=== PATIENT | female | born 1965 | race Caucasian/White ===

== ENCOUNTER 2020-09-08 12:33 | Outpatient (REF) | payer OTHER, SELFPAY ==
[2020-09-08 17:57] LABS: Alanine Aminotransferase 15 U/L (0-31); Albumin Level 4.3 g/dL (3.5-5.0); Alkaline Phosphatase 71 U/L (39-117); Anion Gap 15 (12-20); Aspartate Amino Transferase 20 U/L (5-31); Bilirubin Total 0.5 mg/dL (0.0-1.0); Blood Urea Nitrogen 12 mg/dL (9-16); Calcium 9.2 mg/dL (8.4-10.2); Carbon Dioxide 27 mmol/L (22-29); Chloride 99 mmol/L (96-108); Cholesterol 241 mg/dL; Estimated Glomerular Filt Rate > 60; Glucose Random 73 mg/dL (60-115); HDL Cholesterol 59 mg/dL; LDL Cholesterol Calculated 149 mg/dl; Potassium 3.5 mmol/L (3.3-5.1); Sodium 137 mmol/L (135-145); Total Protein 7.5 g/dL (6.5-8.0); Triglycerides 167 mg/dL
[2020-09-08 18:17] LABS: Free T4 (Free Thyroxine) 0.77 ng/dL (0.71-1.85); Thyroid Stimulating Hormone 1.15 uIU/mL (0.32-4.0)
== END 2020-09-08 12:34 | disposition home or self-care (01) ==
LOC: HO.MANLDS 12:33
PROVIDERS: PCP Internal Medicine; Visit Provider Internal Medicine
DX: Z00.00 Encounter for general adult medical examination without abnormal findings (principal); E03.9 Hypothyroidism, unspecified
CPT/HCPCS: 36415; 80053; 80061; 84439; 84443

== ENCOUNTER 2023-08-09 10:02 | Outpatient (REF) | payer OTHER, SELFPAY ==
[2023-08-09 13:40] LABS: MANUAL DIFF FLAG NO
[2023-08-09 13:42] LABS: Basophils Percent Auto 0.5 % (0-2); Eosinophils Absolute Auto 0.1 X10*3/uL (0.0-0.4); Eosinophils Percent Auto 1.4 % (0-4); Hematocrit 41.2 % (37.0-47.0); Hemoglobin 13.5 g/dl (12.0-16.0); Imm Gran Abs Auto 0.02 X10*3/uL (0.00-0.03); Imm Gran Pct Auto 0.3 % (0.0-0.4); Lymphocytes Absolute Auto 1.8 X10*3/uL (1.2-4.9); Lymphocytes Percent Auto 28.2 % (20-40); Mean Corpuscular HGB Conc 32.8 g/dl (31.0-35.0); Mean Corpuscular Hemoglobin 28.2 pg (27.0-33.0); Mean Corpuscular Volume 86.2 fL (80.0-98.0); Mean Platelet Volume 11.1 fL (9.4-12.3); Monocytes Absolute Auto 0.4 X10*3/uL (0.1-1.2); Monocytes Percent Auto 6.2 % (2-11); Neutrophils Percent Auto 63.4 % (45-73); Platelet Count 191 X10*3/uL (160-400); Red Blood Count 4.78 X10*6/uL (4.20-5.50); Red Cell Distribution Width 13.3 % (11.0-16.0); White Blood Count 6.3 X10*3/uL (4.8-10.8)
[2023-08-09 14:13] LABS: Alanine Aminotransferase 18 U/L (0-31); Albumin Level 4.4 g/dL (3.5-5.0); Alkaline Phosphatase 65 U/L (39-117); Anion Gap 15 (12-20); Aspartate Amino Transferase 20 U/L (5-31); Bilirubin Total 0.4 mg/dL (0.0-1.0); Blood Urea Nitrogen 30 mg/dL (9-16); Calcium 9.5 mg/dL (8.4-10.2); Carbon Dioxide 28 mmol/L (22-29); Chloride 100 mmol/L (96-108); Cholesterol 234 mg/dL (<200); Estimated Glomerular Filt Rate 54; Glucose Random 94 mg/dL (60-115); HDL Cholesterol 48 mg/dL (>40); LDL Cholesterol Calculated 153 mg/dL (<100); Sodium 140 mmol/L (135-145); Total Protein 7.7 g/dL (6.5-8.0); Triglycerides 165 mg/dL (<150)
[2023-08-09 14:32] LABS: Free T4 (Free Thyroxine) 0.75 ng/dL (0.71-1.85); Thyroid Stimulating Hormone 2.65 uIU/mL (0.32-4.0)
== END 2023-08-09 10:03 | disposition home or self-care (01) ==
LOC: HO.MANLDS 10:02
PROVIDERS: Visit Provider Internal Medicine
DX: I10 Essential (primary) hypertension (principal); E78.2 Mixed hyperlipidemia; E03.9 Hypothyroidism, unspecified
CPT/HCPCS: 36415; 80053; 80061; 84439; 84443; 85025

== ENCOUNTER 2024-07-24 13:47 | Outpatient (REF) | payer OTHER, SELFPAY ==
--- OUTSIDE RECORDS SUMMARY | 2024-07-24 14:20 | XMS_ITS | Data Portability ---
Author Organization [facility], Home Service Address [address] [place] [address] Assessment Encounter Date Assessment Date Assessment LastModified by Organization Details LastModified Time 11/28/2022 11/28/2022 [id number] [place] [id number] (SENIOR MECHANICAL DESIGNER) [facility] MODERATE MUST MEET 2 OUT OF 3 ELEMENTS: PROBLEMS, DATA OR RISK ELEMENT 1: PROBLEMS ADDRESSED 1 OR MORE CHRONIC ILLNESS WITH EXACERBATION OR 2 OR MORE STABLE CHRONIC ILLNESSES OR 1 UNDIAGNOSED NEW PROBLEM OR 1 ACUTE ILLNESS W/SYMPTOMS OR 1 ACUTE COMPLICATED INJURY ELEMENT 2: DATA MUST MEET 1 OF 3 CATEGORIES CATEGORY 1: REVIEW OF PRIOR EXTERNAL NOTES, REVIEW OF RESULTS, ORDERING OF EACH TEST, ASSESSMENT REQUIRING INDEPENDENT HISTORIAN OR CATEGORY 2: INDEPENDENT INTERPRETATION OF TESTS BY ANOTHER PHYSICIAN OR SPECIALIST OR CATEGORY 3: DISCUSSION OF MGT OR TEST INTERPRETATION W/EXTERNAL PHYSICIAN OR SPECIALIST ELEMENT 3: RISK RISK OF COMPLICATIONS AND/OR MORBIDITY OR MORTALITY OF PATIENT MANAGEMENT PROVIDER MUST THOROUGHLY DOCUMENT EACH ELEMENT THAT IS COVERED Not available 11/28/2022 10:36:19 01/02/2023 01/02/2023 [id number] [place] [id number] (SENIOR MECHANICAL DESIGNER) [facility] MODERATE MUST MEET 2 OUT OF 3 ELEMENTS: PROBLEMS, DATA OR RISK ELEMENT 1: PROBLEMS ADDRESSED 1 OR MORE CHRONIC ILLNESS WITH EXACERBATION OR 2 OR MORE STABLE CHRONIC ILLNESSES OR 1 UNDIAGNOSED NEW PROBLEM OR 1 ACUTE ILLNESS W/SYMPTOMS OR 1 ACUTE COMPLICATED INJURY ELEMENT 2: DATA MUST MEET 1 OF 3 CATEGORIES CATEGORY 1: REVIEW OF PRIOR EXTERNAL NOTES, REVIEW OF RESULTS, ORDERING OF EACH TEST, ASSESSMENT REQUIRING INDEPENDENT HISTORIAN OR CATEGORY 2: INDEPENDENT INTERPRETATION OF TESTS BY ANOTHER PHYSICIAN OR SPECIALIST OR CATEGORY 3: DISCUSSION OF MGT OR TEST INTERPRETATION W/EXTERNAL PHYSICIAN OR SPECIALIST ELEMENT 3: RISK RISK OF COMPLICATIONS AND/OR MORBIDITY OR MORTALITY OF PATIENT MANAGEMENT PROVIDER MUST THOROUGHLY DOCUMENT EACH ELEMENT THAT IS COVERED Not available 01/02/2023 14:46:11 02/06/2023 02/06/2023 [id number] [place] [id number] (SENIOR MECHANICAL DESIGNER) [facility] MODERATE MUST MEET 2 OUT OF 3 ELEMENTS: PROBLEMS, DATA OR RISK ELEMENT 1: PROBLEMS ADDRESSED 1 OR MORE CHRONIC ILLNESS WITH EXACERBATION OR 2 OR MORE STABLE CHRONIC ILLNESSES OR 1 UNDIAGNOSED NEW PROBLEM OR 1 ACUTE ILLNESS W/SYMPTOMS OR 1 ACUTE COMPLICATED INJURY ELEMENT 2: DATA MUST MEET 1 OF 3 CATEGORIES CATEGORY 1: REVIEW OF PRIOR EXTERNAL NOTES, REVIEW OF RESULTS, ORDERING OF EACH TEST, ASSESSMENT REQUIRING INDEPENDENT HISTORIAN OR CATEGORY 2: INDEPENDENT INTERPRETATION OF TESTS BY ANOTHER PHYSICIAN OR SPECIALIST OR CATEGORY 3: DISCUSSION OF MGT OR TEST INTERPRETATION W/EXTERNAL PHYSICIAN OR SPECIALIST ELEMENT 3: RISK RISK OF COMPLICATIONS AND/OR MORBIDITY OR MORTALITY OF PATIENT MANAGEMENT PROVIDER MUST THOROUGHLY DOCUMENT EACH ELEMENT THAT IS COVERED Not available 02/06/2023 12:31:39 08/09/2023 08/09/2023 [id number] [place] [address] (SENIOR MECHANICAL DESIGNER) [facility] MODERATE MUST MEET 2 OUT OF 3 ELEMENTS: PROBLEMS, DATA OR RISK ELEMENT 1: PROBLEMS ADDRESSED 1 OR MORE CHRONIC ILLNESS WITH EXACERBATION OR 2 OR MORE STABLE CHRONIC ILLNESSES OR 1 UNDIAGNOSED NEW PROBLEM OR 1 ACUTE ILLNESS W/SYMPTOMS OR 1 ACUTE COMPLICATED INJURY ELEMENT 2: DATA MUST MEET 1 OF 3 CATEGORIES CATEGORY 1: REVIEW OF PRIOR EXTERNAL NOTES, REVIEW OF RESULTS, ORDERING OF EACH TEST, ASSESSMENT REQUIRING INDEPENDENT HISTORIAN OR CATEGORY 2: INDEPENDENT INTERPRETATION OF TESTS BY ANOTHER PHYSICIAN OR SPECIALIST OR CATEGORY 3: DISCUSSION OF MGT OR TEST INTERPRETATION W/EXTERNAL PHYSICIAN OR SPECIALIST ELEMENT 3: RISK RISK OF COMPLICATIONS AND/OR MORBIDITY OR MORTALITY OF PATIENT MANAGEMENT PROVIDER MUST THOROUGHLY DOCUMENT EACH ELEMENT THAT IS COVERED Not available 08/09/2023 09:55:11 02/07/2024 02/07/2024 [id number] [place] [id number] (SENIOR MECHANICAL DESIGNER) [facility] MODERATE MUST MEET 2 OUT OF 3 ELEMENTS: PROBLEMS, DATA OR RISK ELEMENT 1: PROBLEMS ADDRESSED 1 OR MORE CHRONIC ILLNESS WITH EXACERBATION OR 2 OR MORE STABLE CHRONIC ILLNESSES OR 1 UNDIAGNOSED NEW PROBLEM OR 1 ACUTE ILLNESS W/SYMPTOMS OR 1 ACUTE COMPLICATED INJURY ELEMENT 2: DATA MUST MEET 1 OF 3 CATEGORIES CATEGORY 1: REVIEW OF PRIOR EXTERNAL NOTES, REVIEW OF RESULTS, ORDERING OF EACH TEST, ASSESSMENT REQUIRING INDEPENDENT HISTORIAN OR CATEGORY 2: INDEPENDENT INTERPRETATION OF TESTS BY ANOTHER PHYSICIAN OR SPECIALIST OR CATEGORY 3: DISCUSSION OF MGT OR TEST INTERPRETATION W/EXTERNAL PHYSICIAN OR SPECIALIST ELEMENT 3: RISK RISK OF COMPLICATIONS AND/OR MORBIDITY OR MORTALITY OF PATIENT MANAGEMENT PROVIDER MUST THOROUGHLY DOCUMENT EACH ELEMENT THAT IS COVERED Not available 02/07/2024 09:12:12 Plan of Treatment Reminders Order Date Submit Date Provider Last Modified By Organization Details Last Modified Time Details Appointments FOLLOW UP 15 2024 10:00A M DR LI Not available Not available Not available Lab CMP, serum or plasma 2023 024 [facility], [address] [place] [address], [id number], 02/07/2024 09:20:28 CBC 2023 024 [facility], [address] [place] [address], [id number], 02/07/2024 09:20:28 TSH, serum or plasma 2023 024 [facility], [address] [place] [address], [id number], 02/07/2024 09:20:28 lipid panel, blood 2023 024 [facility], [place], [address], 08/10/2023 11:15:53 CMP, serum or plasma 2023 024 [facility], [place], [address], 08/10/2023 11:15:53 CBC 2023 024 [facility], [place], [address], 08/10/2023 11:15:53 TSH + free T4, serum 2023 024 [facility], [place], [address], 08/10/2023 11:15:53 Referral None recorded. Procedures None recorded. Surgeries None recorded. Imaging MAMMO, screening , digital, bilateral 2022 023 [facility] Not available 01/16/2023 08:38:37 Medication Orders triamtere ne 37.5 mg-hydroc hlorothia zide 25 mg tablet 2022 023 [id number], [address] [place], [address], 01/02/2023 14:48:57 Patient TargetsNo targets recorded. Patient Instructions Encounter Date Encounter Id Patient Instructions Last Modified By Organization Details Last Modified Time 01/02/2023 [id number] mammogram: about this test Not available 01/02/2023 14:53:13 02/06/2023 [id number] cough: care instructions Not available 02/06/2023 12:32:31 02/07/2024 [id number] pulse oximetry* Not available 02/07/2024 09:13:30 Reason for Referral None Reported. Results Created Date Observation Date Name Description Value Unit Range Abnormal Flag Note LastModifiedBy Organization Detail LastModifiedTime 02/07/20 24 02/07/2024 pulse oxime try* Result 99% Not Available [facility] [address] [facility] [address], [place], [address], 02/07/2024 08:25:50 04/14/19 24 04/11/2023 MAMMO , scree live, digit al, bilat eral No observ ation record ed. [facility] [address] [place], [address], 08/09/2023 09:53:29 Result Notes None recorded. Problems Name Problem SNOMED Code Status Onset Date Resolution Date Notes Provider Name and Address Organization Details Recorded Time Hyperten sive disorder 90091656 Active 2017 MICHEAL Magdaleno [facility] 8 08:24:32 Disorder of vitamin B12 949230555 Active 2017 MICHEAL Magdaleno [facility] 8 08:24:38 Hypertri glycerid emia 188212671 Active 2017 [facility] 8 08:24:43 Hypothyr oidism 53513558 Active 2017 [facility] 08:25:06 History of cervical discecto my 92184400302 483389 Active 2017 cervical fusion C3-6 Fransisco Li, [address], [address], [facility] 3 11:46:13 History of tobacco use 03161709076 03 Active 2017 [facility] 8 08:25:45 Cough 54758618 Active 2021 Fransisco Li, [address], [address], [facility] 2 16:16:30 Strain of muscle of right shoulder 28837629105 414437 Active 2022 Fransisco Li [address], [address], [facility] 3 11:47:47 Pain of ear 355419491 Active 2022 Fransisco Li DO [address] [place] [address], [address], [facility] 3 11:52:48 Acute pain of joint of knee 99546987953 9104 Active 2022 Fransisco Li [address], [address], [facility] 3 14:50:34 Problem Notes None recorded. Procedures Surgical History None recorded. Imaging Results Imaging Date Name Status LastModified by Organiz ation Details LastModified Time 04/11/2023 MAMMO, screening, digital, bilateral completed [facility] [address] [facility], [place], [address], 08/09/2023 09:53:29 Procedure Notes None recorded. Medical Equipment None Reported. Allergies Allergen ID Allergen Name Allergen Category Reaction Reaction Severity Criticality Documentation Date Start Date Code Code System Note Provider Name and Address Organization Details Recorded Time 3374 morphine medicatio n Not available Not available Not available 10/12/2018 7052 RxNorm Does not feel right on this medic ation Cassi [facility] 9 14:32:01 4243 influenza virus vaccine, specific Not available Not available Not available Not available 03/10/2020 42959 UNK Paris Stephenson [facility] 1 12:04:54 Medications Name Sig Start Date Stop Date Status Note LastModified by Organization Details LastModified Time [place] Thyroid 60 mg tablet TAKE 1 TABLET BY MOUTH EVERY MORNING ALONG WITH 15MG TABLET active Not Available Not Available No t Available [place] Thyroid 15 mg tablet TAKE 1 TABLET BY MOUTH EVERY DAY IN THE MORNING active Not Available Not Available No t Available triamterene 37.5 mg-hydrochlor othiazide 25 mg tablet TAKE 2 TABLETS BY MOUTH EVERY DAY 025 active Not Available Not Available Not Avai lable Vitals Date Recorded Body height Body mass index (BMI) Body weight Heart rate Oxygen saturation Oxygen saturation in Arterial blood by Pulse oximetry Systolic blood pressure Diastolic blood pressure Provider Name and Address Organization Details Last Updated DateTime 3 162.56 cm 32.3 kg/m2 79132.3 7 g 72 /min 98 % 98 % 150 mm[Hg] 98 mm[Hg] Liyah Chavez [facility] 3 10:04:16 Date Recorded Body height Body mass index (BMI) Body weight Heart rate Oxygen saturation Oxygen saturation in Arterial blood by Pulse oximetry Systolic blood pressure Diastolic blood pressure Provider Name and Address Organization Details Last Updated DateTime 3 162.56 cm 33.6 kg/m2 33230.1 g 81 /min 98 % 98 % 142 mm[Hg] 82 mm[Hg] Fransisco Li, DO [address] [place], [address] , [facility] 3 14:31:27 Date Recorded Body height Body mass index (BMI) Body weight Heart rate Oxygen saturation Oxygen saturation in Arterial blood by Pulse oximetry Systolic blood pressure Diastolic blood pressure Provider Name and Address Organization Details Last Updated DateTime 3 162.56 cm 33.6 kg/m2 86903.1 g 80 /min 98 % 98 % 140 mm[Hg] 80 mm[Hg] Fransisco Li, DO [address] [place], [address], [facility] 3 11:56:14 Date Recorded Body height Body mass index (BMI) Body weight Heart rate Respiratory rate Oxygen saturation Oxygen saturation in Arterial blood by Pulse oximetry Systolic blood pressure Diastolic blood pressure Provider Name and Address Organization Details Last Updated DateTime 4 162.56 cm 33 kg/m2 43509.5 3 g 78 /min 16 /min 99 % 99 % 118 mm[Hg] 74 mm[Hg] Ravin Atkinson [facility] 4 09:37:25 Date Recorded Body height Body mass index (BMI) Body weight Heart rate Oxygen saturation Oxygen saturation in Arterial blood by Pulse oximetry Systolic blood pressure Diastolic blood pressure Provider Name and Address Organization Details Last Updated DateTime 4 162.56 cm 34.3 kg/m2 60209.0 4 g 82 /min 99 % 99 % 138 mm[Hg] 82 mm[Hg] Ravin Atkinson [facility] 4 09:03:53 Social History Question Answer Notes LastModified by Organizat ion Details LastModified Time Tobacco Smoking Status Former Smoker Not Available [facility] 01/07/2020 03:36:24 What Was The Date Of Your Most Recent Tobacco Screening? 02/07/2024 [email or web address] Information not available 02/07/2024 Sex: Unknown Functional Status Question Answer Note LastModified by Organization D etails LastModified Time Do you or have you ever used any other forms of tobacco or nicotine? No [email or web address] Information not available 11/28/2022 Mental Status None recorded. Family History Nothing Reported. Medical History No medical history recorded. Gynecological HistoryNo gynecological history recorded. Obstetrics History GPAL:G 0 P 0 0 0 0 Immunizations Vaccine Type Date Status Note Provider Nam e and Address Organization Details Recorded Time COVID-19 vaccine, vector-nr, rS-ChAdOx1, PF, 0.5 mL 06/14/2020 completed Paris Stephenson [facility] 09/14/2020 09:59:18 COVID-19 vaccine, vector-nr, rS-Ad26, PF, 0.5 mL 03/30/2021 completed Tracey bucio [facility] 05/30/2022 08:43:06 Past Encounters Encounter ID Performer Location Encounter Start Date Encounter Closed Date Diagnosis/Indication Diagnosis SNOMED-CT Code Diagnosis ICD10 Code Diagnosis Note [id number] Fransisco Li [facility] [address] [facility] [address] 11/24/2017 09:01:24 11/24/2017 13:36:06 Hypertensive disorder 72626196 I10 here it is quite good todday and states it has been good outsidfe as well tolerates meds but overall ok Hypertriglyceridemia 302 115679 E78.2 will check next lab draw lipids Hypothyroidism 06218547 E03.9 rechk tsh and t4 [id number] Fransisco Li [facility] [address] [facility],[place] [address] 05/25/2018 09:21:15 05/25/2018 10:20:37 Hypothyroidism 63794537 E03.9 rechk tsh and t4 Hypertensive disorder 38 589374 I10 good today and states it has been good at home despite her stress losing 20lbs helps tolerates meds but overall ok [id number] Fransisco Li DO [facility] [address] [facility],[place] [address] 10/12/2018 14:24:17 10/12/2018 15:12:02 Complaining of a rash 983133736 R21 mild appearing rash doesn't seem consistent with poison afsaneh, but perhaps a more mild allergic reaction given response to benadryl continue benadryl prn f/u if sx change or worsen Hypertensive disorder 38 580793 I10 mildly elevated today [id number] Fransisco Li [facility] [address] [facility] [address],[place] [address] 11/28/2018 09:32:52 11/28/2018 10:54:53 Hypothyroidism 98678758 E03.9 rechk tsh and t4 done recently and is having dr dey adjust her dose Hypertensive disorder 38 845219 I10 good today and states it has been good at home despite her stress losing 20lbs helps tolerates meds but overall ok Screening mammography 24 698358 Z12.31 didnt get this year even though she had a cyst Hypercholesterolemia 136 18894 E78.00 rev in detail has noted to be LDL 112 [id number] Fransisco Li [facility] [address] [facility], [place] [address] 09/13/2019 08:55:52 09/13/2019 09:48:19 Hypertensive disorder 28826499 I10 good today and states it has been good at home tolerates meds but overall ok stable and good Hypothyroidism 16747597 E03.9 rechk tsh and t4 poss prob with her thyroid dosage per her pharmacy Tendinitis of finger 423 111997 M67.849 will have her cont to tx conserv [id number] Fransisco Li [facility] [address] [facility], [place] [address] 03/10/2020 11:59:21 03/10/2020 12:25:14 Hypertriglyceridemia 001768077 E78.2 will check next lab draw lipids Hypertensive disorder 38 130304 I10 states it has been good at home tolerates meds but overall ok stable and good Hypothyroidism 79368327 E03.9 rechk tsh and t4 poss prob with her thyroid dosage per her pharmacy Adult heal th examination 485321410 Z00.00 [id number] Fransisco Li [facility] [address] [facility], [place] [address] 09/14/2020 09:54:50 09/14/2020 10:32:34 Hypothyroidism 35951433 E03.9 rechk tsh and t4 poss prob with her thyroid dosage per her pharmacy Hypertensive disorder 38 068796 I10 states it has been good at home tolerates meds but overall ok stable and good Hypertriglyceridemia 302 199027 E78.2 lab was good 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.31 we are unsure if this is covid vacc elevated Pain of ri ght shoulder joint 9477566658 7482161 M25.511 she will cont to do advil tyl [facility] his tory of aneurysm of blood vessel of brain 5990948279 8661165 Z82.49 relates that she is reluctant to do this but i told her this was the only way to get this checkedtol d her she could refuse if she wants [id number] Fransisco Li [facility] [address] [facility] [facility] [place] [address] 03/15/2021 08:17:25 03/15/2021 14:35:03 Hypertensive disorder 56347039 I10 states it has been good at home tolerates meds but overall ok stable and good Hypothyroidism 69550765 E03.9 rechk tsh and t4 poss prob with her thyroid dosage per her pharmacy Cough 89044607 R05.2 told to get some new pillows and told to get rid of old bed linen [id number] Fransisco Li [facility] [address] [facility],[address] [place] [address] 12/01/2021 10:15:28 12/01/2021 16:27:05 Hypertensive disorder 81900961 I10 states it has been good at home has been a little elevated during allergies and stress at work tolerates meds but overall ok stable and good Cough 92694239 R05.2 clear sputum no feverdoesn t feel sickstates she will try to ride this out and if she calls out and says she is worse she will call us [id number] Fransisco Li [facility] [address] [facility] [facility] [place] [address] 05/30/2022 11:15:57 05/30/2022 12:02:40 Hypertensive disorder 52978476 I10 states it has been good at home has been a little elevated during allergies and stress at work tolerates meds but overall ok stable and good right now Strain of muscle of right shoulder 3853305267 3803814 S46.911A will refer to [place] to work on this rememberin g she cannot get manipulati on of the c spine pt understand s Pain of ear 177988696 H9 2.09 no evidence of infection and symptoms are now gone Hypothyroidism 31076714 E03.9 rechk tsh and t4 poss prob with her thyroid dosage per her pharmacy [id number] Fransisco Li [facility] [address] [facility], [employer] [address] 11/28/2022 09:59:39 11/28/2022 11:55:55 Hypertensive disorder 65030420 I10 still elevated due to stress prob we will increase her dose to 1 1/2 tab and follow Hypertriglyceridemia 302 993646 E78.2 lab was good Hypothyroidism 41183729 E03.9 rechk tsh and t4 poss prob with her thyroid dosage per her pharmacy [id number] Fransisco Li DO [facility] [address] [facility], [place] [address] 01/02/2023 14:24:05 01/02/2023 15:04:19 Hypertensive disorder 01806248 I10 still elevated due to stress prob we have increased her dose to 1 1/2 tab and her bp is much betterrela yvette that she has had an occ dizziness if gets up quickly Hypertriglyceridemia 302 583335 E78.2 lab was good will rechk next visit Hypothyroidism 37094670 E03.9 rechk tsh and t4 poss prob with her thyroid dosage per her pharmacy Acute pain of joint of knee 6514804515 11221 M25.569 following a knee injury back when she was working outside over weekend getting better Screening mammography 24 189275 Z12.31 didnt get this year even though she had a cyst [id number] Fransisco Hiltonnadir [facility] [address] [facility], [place] [address] 02/06/2023 11:39:11 02/06/2023 12:45:21 Hypertensive disorder 05823815 I10 bp is now much better and is tolerating the extra half dosebp at home noted and avg 126/74 rivas Hypothyroidism 71977123 E03.9 rechk tsh and t4 poss prob with her thyroid dosage per her pharmacy Hypertriglyceridemia 302 210697 E78.2 lab was good will rechk next visit Cough 72549828 R05.2 clear sputum no feverstill having a great deal of upper sx but lungs are clear if sx persists she will need to callstates she will try to ride this out [id number] Fransisco Li DO [facility] [address] [facility] [address] [place] [address] 08/09/2023 09:27:33 08/09/2023 10:03:34 Hypertensive disorder 11236255 I10 bp is now much better and is tolerating the extra half dosebp at home noted and avg 126/74 rivas Hypertriglyceridemia 302 234198 E78.2 lab was good will rechk next visit Hypothyroidism 34174521 E03.9 rechk tsh and t4 poss prob with her thyroid dosage per her pharmacy Depression screening 171 621945 Z13.31 negative [id number] Fransisco Li [facility] [address] [facility] [address] [address] 02/07/2024 08:55:20 02/07/2024 10:03:23 Cough 28705571 R05.2 clear sputum no feverstill having a great deal of upper sx but lungs are clear if sx persists she will need to callstates she will try to ride this out Hypothyroidism 40394903 E03.9 rechk tsh and t4 poss prob with her thyroid dosage per her pharmacy Hypertensive disorder 38 982870 I10 bp is now much better and is tolerating the extra half dosebp at home noted and avg 126/74 rivas Health Concerns Section Related Observation LastModified by Organization Detai ls LastModified Time None Recorded Concern Status LastModified by Organization Details LastModified Time None Recorded Advance Directives Directive None Recorded Payers Encounter Date Sequence Insurance Name Policy Number Policy Chinchilla Covered Member ID Chinchilla Member ID Guarantor Name 11/28/2022 1 [facility] [id number] Mary [place] [id number] Mary R [place] 01/02/2023 1 [facility] [id number] Mary [place] [id number] Mary R [place] 02/06/2023 1 [facility] [id number] 01 Mary [place] [id number] Mary R [place] 08/09/2023 1 [facility] [id number] 01 Mary [place] [id number] Mary R [place] 02/07/2024 1 [facility] [id number] 01 Mary [place] [id number] Mary Jauregui Notes Date Note Type Note Provider Name and Address Organization Details Recorded Time 3 text/htm l Care Management - HypertensionReported bypatient.Self Care:not under emotional stress Severity:symptoms are improving; does not interfere with daily activities Associated Symptoms:no dizziness; no lightheadedness; no chest pain; no shortness of breath; no palpitations; no edema; no calf muscle cramps; no blurred vision; no confusion; no headaches; no fatigue here for rechk but has been very stressed latelyathome and feels very anxious sleep is poorasking to increase dose of hre bp med as her bp is up from the stress Fransisco Li DO [address] [place] [address], [address], [facility] 11/28/2022 10:42:05 3 text/htm l Care Management - HypertensionReported bypatient.Self Care:not under emotional stress Severity:symptoms are improving; does not interfere with daily activities Associated Symptoms:no dizziness; no lightheadedness; no chest pain; no shortness of breath; no palpitations; no edema; no calf muscle cramps; no blurred vision; no confusion; no headaches; no fatigue here for rechk and is better with bp home bp cuff is not working well getting wildly diff numbers home bp overall avg is actually much betterusing higher dose and feels bettereven here is better than what she has beenhas pain in her right knee and was active over the wkndused advil and is a little better today Fransisco Li DO [address] [place], [id number], [facility] 01/02/2023 14:55:22 3 text/htm l Care Management - HypertensionReported bypatient.Self Care:not under emotional stress Severity:symptoms are improving; does not interfere with daily activities Associated Symptoms:no dizziness; no lightheadedness; no chest pain; no shortness of breath; no palpitations; no edema; no calf muscle cramps; no blurred vision; no confusion; no headaches; no fatigue here for rechk had been ill 10 days ago but has developed a cough and wheeze and this is persistinghad started guaifen and has been having productive cough nowno longer with nasal congestioncough worse covid tested multiple times negativerelates that she has been having a great deal of irritation in lungs Fransisco Rimma Emmett, DO [address] [place], [id number], [facility] 02/06/2023 12:32:47 4 text/htm l here for rechkrelates that she is doing ok relates ears blocked at timespollen not bothering herhad mammo in apr all goodrelates that she is taking her 2 meds for bp Fransisco Shanks DO Emmett [address] [place], [id number], [facility] 08/09/2023 09:58:30 4 text/htm l here for rechk and is doinghas been fatigued at times since caring for grandchildren 5home bps running 120's sysrelates has been having some nasal/sinus congestionbut overall has been feeling good also injured her low back on the leftrelates seeing the DC for this and is getting better Fransisco LyndsayViolet Li DO [address] [place], [id number], [facility] 02/07/2024 09:20:09 OBGyn Episode No OBEpisode recorded.
[2024-07-24 18:07] LABS: MANUAL DIFF FLAG NO
[2024-07-24 18:21] LABS: Basophils Percent Auto 0.4 % (0-2); Eosinophils Absolute Auto 0.1 X10*3/uL (0.0-0.4); Eosinophils Percent Auto 0.8 % (0-4); Hemoglobin 13.2 g/dl (12.0-16.0); Imm Gran Abs Auto 0.02 X10*3/uL (0.00-0.03); Imm Gran Pct Auto 0.3 % (0.0-0.4); Lymphocytes Absolute Auto 1.8 X10*3/uL (1.2-4.9); Lymphocytes Percent Auto 25.2 % (20-40); Mean Corpuscular Hemoglobin 28.2 pg (27.0-33.0); Mean Corpuscular Volume 85.5 fL (80.0-98.0); Monocytes Absolute Auto 0.5 X10*3/uL (0.1-1.2); Monocytes Percent Auto 6.6 % (2-11); Neutrophils Absolute Auto 4.8 x10*3/uL (2.0-8.3); Neutrophils Percent Auto 66.7 % (45-73); Platelet Count 184 X10*3/uL (160-400); Red Blood Count 4.68 X10*6/uL (4.20-5.50); Red Cell Distribution Width 13.4 % (11.0-16.0); White Blood Count 7.2 X10*3/uL (4.8-10.8)
[2024-07-24 18:30] LABS: Alanine Aminotransferase 33 U/L (0-31); Albumin Level 4.3 g/dL (3.5-5.0); Alkaline Phosphatase 71 U/L (39-117); Anion Gap 13 (12-20); Aspartate Amino Transferase 29 U/L (5-31); Bilirubin Total 0.3 mg/dL (0.0-1.0); Blood Urea Nitrogen 21 mg/dL (9-16); Calcium 9.7 mg/dL (8.4-10.2); Carbon Dioxide 31 mmol/L (22-29); Chloride 100 mmol/L (96-108); Estimated Glomerular Filt Rate > 60; Glucose Random 79 mg/dL (60-115); Potassium 3.4 mmol/L (3.3-5.1); Sodium 141 mmol/L (135-145); Total Protein 7.5 g/dL (6.5-8.0)
== END 2024-07-24 13:48 | disposition home or self-care (01) ==
LOC: HO.MANLDS 13:47
PROVIDERS: Visit Provider Internal Medicine
DX: I10 Essential (primary) hypertension (principal)
CPT/HCPCS: 36415; 80053; 85025